=== PATIENT | female | born 1995 | race Caucasian/White ===

== ENCOUNTER 2017-03-21 09:52 | Inpatient (IN) | payer BC ==
[2017-03-21] MEDS ORDERED: OXYTOCIN 30 UNITS/LR 500 ML IV ×2 (10:00→18:00)
[2017-03-21] MEDS ORDERED: CARBOPROST 250 MCG INJ IM ×2 (10:00→18:00)
[2017-03-21] MEDS ORDERED: MISOPROSTOL 200 MCG TAB PR ×2 (10:00→18:00)
[2017-03-21] MEDS ORDERED: METHYLERGONOVINE 0.2 MG INJ IM ×2 (10:00→18:00)
[2017-03-21] MEDS: LACTATED RINGER'S 1,000 ML IV (10:43)
[2017-03-21 10:45] LABS: ADD MAN DIFF? NO
[2017-03-21 10:48] LABS: WHITE BLOOD COUNT 8.6 10^3/ul (4.8-10.8)
[2017-03-21 10:48] LABS: BASOPHILS % 0.2 % (0.0-2.0); EOSINOPHILS # 0.1 10^3/ul (0.0-0.5); EOSINOPHILS % 1.4 % (0.0-7.0); HEMATOCRIT 33.4 % (37.0-47.0); LYMPHOCYTES # 2.3 10^3/ul (0.8-2.9); LYMPHOCYTES % 26.7 % (15.0-51.0); MEAN CORPUSCULAR HEMOGLOBIN 26.4 pg (29.0-33.0); MEAN CORPUSCULAR HGB CONC 32.9 g/dl (32.0-37.0); MEAN CORPUSCULAR VOLUME 80.1 fl (82.0-101.0); MEAN PLATELET VOLUME 10.6 fl (7.4-10.4); MONOCYTE # 0.5 10^3/ul (0.3-0.9); MONOCYTES % 5.2 % (0.0-11.0); NEUTROPHIL # 5.7 10^3/ul (1.6-7.5); NEUTROPHILS % 65.9 % (39.0-77.0); PLATELET COUNT 208 10^3/UL (140-415); RED BLOOD COUNT 4.17 10^6/ul (4.20-5.40); RED CELL DISTRIBUTION WIDTH 14.9 % (11.5-14.5)
[2017-03-21 11:29] LABS: INR 0.93; PROTIME 12.5 Sec (11.9-14.9)
[2017-03-21 11:30] LABS: PARTIAL THROMBOPLASTIN TIME 28.1 Sec (25.0-35.0)
[2017-03-21 12:20] LABS: HEPATITIS B SURFACE ANTIGEN NEGATIVE (NEGATIVE)
[2017-03-21] MEDS: CITRIC ACID/SODIUM CITRATE 15 ML CUP PO (13:04)
[2017-03-21] MEDS: ONDANSETRON 4 MG INJ IV (13:04)
[2017-03-21] MEDS ORDERED: morphine SULFATE/PF (10 MG/10 ML) INJ (13:14)
[2017-03-21] MEDS ORDERED: OXYTOCIN 10 UNIT INJ ×2 (13:14→13:52)
[2017-03-21] MEDS ORDERED: PHENYLephrine (100 MCG/ML) 5ML SYG ×2 (13:14→13:52)
[2017-03-21] MEDS ORDERED: DEXAMETHASONE 4 MG/ML 1 ML INJ (13:33)
[2017-03-21] MEDS ORDERED: METOCLOPRAMIDE 10 MG INJ (13:33)
[2017-03-21] MEDS ORDERED: KETOROLAC 30 MG INJ (13:33)
[2017-03-21] MEDS ORDERED: morphine 2 MG INJ IV (14:00)
[2017-03-21] MEDS ORDERED: NALBUPHINE HCL (10 MG/1 ML) INJ IV (14:00)
[2017-03-21] MEDS ORDERED: ACETAMINOPHEN 500 MG TAB PO (14:00)
[2017-03-21] MEDS ORDERED: HYDROCODONE/APAP (5/325) TAB PO (14:00)
[2017-03-21] MEDS ORDERED: NALOXONE (0.4 MG/ML) INJ IV (14:00)
[2017-03-21] MEDS ORDERED: morphine 4 MG/ML VIAL IV (14:00)
[2017-03-21] MEDS ORDERED: HYDROmorphONE 0.5 MG/0.5 ML SYG IV ×2 (14:00)
[2017-03-21] MEDS ORDERED: KETOROLAC 30 MG INJ IV (14:00)
[2017-03-21] MEDS: DIPHENHYDRAMINE 50 MG INJ IV (15:12)
[2017-03-21] MEDS: OXYTOCIN 30 UNITS/LR 500 ML IV ×2 (16:44→22:03)
[2017-03-21] MEDS: CEFAZOLIN 2 GM/50 ML (PMX) 50 ML IV (16:49)
[2017-03-21] MEDS ORDERED: OXYCODONE/ACETAMINOPHEN (5/325) TAB PO ×2 (18:00)
[2017-03-21] MEDS: SENNA/DOCUSATE NA (8.6MG/50MG) TAB PO (20:47)
[2017-03-21 22:26] LABS: RAPID PLASMA REAGIN NONREACTIVE (NR)
[2017-03-22] MEDS: LACTATED RINGER'S 1,000 ML IV ×4 (01:37→17:37)
[2017-03-22] MEDS: ONDANSETRON 4 MG INJ IV (01:57)
[2017-03-22] MEDS: SENNA/DOCUSATE NA (8.6MG/50MG) TAB PO ×2 (08:17→20:42)
[2017-03-22] MEDS: LANOLIN 7 GM TUBE TOP (08:18)
[2017-03-22] MEDS: GUAIFENESIN/DM 5ML CUP PO ×2 (08:18→15:06)
[2017-03-22 09:30] LABS: ADD MAN DIFF? NO
[2017-03-22 09:35] LABS: BASOPHILS % 0.2 % (0.0-2.0); HEMATOCRIT 29.9 % (37.0-47.0); HEMOGLOBIN 9.6 g/dl (12.0-16.0); LYMPHOCYTES # 2.2 10^3/ul (0.8-2.9); LYMPHOCYTES % 20.2 % (15.0-51.0); MEAN CORPUSCULAR HGB CONC 32.1 g/dl (32.0-37.0); MEAN PLATELET VOLUME 10.9 fl (7.4-10.4); MONOCYTE # 0.7 10^3/ul (0.3-0.9); NEUTROPHIL # 7.9 10^3/ul (1.6-7.5); NEUTROPHILS % 73.3 % (39.0-77.0); PLATELET COUNT 184 10^3/UL (140-415); RED BLOOD COUNT 3.69 10^6/ul (4.20-5.40); RED CELL DISTRIBUTION WIDTH 15.1 % (11.5-14.5)
[2017-03-22 09:35] LABS: WHITE BLOOD COUNT 10.8 10^3/ul (4.8-10.8)
[2017-03-22] MEDS ORDERED: IBUPROFEN 800 MG TAB (12:55)
[2017-03-22] MEDS: IBUPROFEN 800 MG TAB PO ×2 (13:08→21:57)
[2017-03-23] MEDS: IBUPROFEN 800 MG TAB PO ×3 (05:37→21:48)
[2017-03-23] MEDS ORDERED: INFLUENZA VIRUS VACCINE 0.5 ML SYG IM* (09:00)
[2017-03-23] MEDS: SENNA/DOCUSATE NA (8.6MG/50MG) TAB PO ×2 (09:36→21:00)
[2017-03-23] MEDS: INFLUENZA VIRUS VACCINE 0.5 ML SYG IM* (11:32)
[2017-03-24] MEDS: IBUPROFEN 800 MG TAB PO (06:35)
[2017-03-24] MEDS: SENNA/DOCUSATE NA (8.6MG/50MG) TAB PO (09:11)
[2017-03-24] MEDS: DIPHTH/TET/ACEL PERTUSS (ADULT) 0.5 ML VIAL IM* (11:36)
== END 2017-03-24 14:48 | disposition home or self-care (01) | DRG 766 ==
LOC: L-D 09:52 → PP1 17:45
PROVIDERS: Obstetrics & Gynecology
PROC: 10D00Z1 Extraction of Products of Conception, Low, Open Approach (ICD-10-PCS; principal; 2017-03-22)
DX: O34.211 Maternal care for low transverse scar from previous cesarean delivery (principal); O69.81X0 Labor and delivery complicated by cord around neck, without compression, not applicable or unspecified; Z37.0 Single live birth; Z3A.39 39 weeks gestation of pregnancy
CPT/HCPCS: 85025; 85610; 85730; 86592; 86850; 86900; 86901; 87340; 88302; 90686; 90715; 94760; 99464